=== PATIENT | male | born 1980 | race Caucasian/White ===

== ENCOUNTER 2017-08-21 00:43 | Emergency (ER) | payer OTHER ==
[2017-08-21 01:08] VITALS: RESP 18; TEMP 96.9
[2017-08-21 01:08] LABS: BASOPHILS % (AUTO) 1 % (0-3); EOSINOPHILS % (AUTO) 2 % (0-9); HEMATOCRIT 40 % (39-53); MEAN CORPUSCULAR HGB CONC 36.2 gm/dl (32.0-36.0); MEAN CORPUSCULAR VOLUME 87 fL (80-100); MONOCYTES % (AUTO) 10.6 % (0-12); NEUTROPHILS % (AUTO) 56.4 % (37-80)
[2017-08-21] MEDS: SODIUM CHLORIDE 0.9% 1000ML 1,000 ML IV SCH ×3 (01:15→03:17)
[2017-08-21 01:17] LABS: CALCIUM 8.3 mg/dl (8.5-10.1); POTASSIUM 3.7 mMol/L (3.5-5.1)
[2017-08-21 01:21] LABS: APPEARANCE,URINE Clear; BILIRUBIN,URINE NEGATIVE (NEGATIVE); COLOR,URINE Yellow; GLUCOSE, URINE (UA) NEGATIVE (NEGATIVE); KETONES,URINE TRACE (NEGATIVE); LEUKOCYTE ESTERASE ,URINE NEGATIVE (NEGATIVE); NITRATE,URINE NEGATIVE (NEGATIVE); OCCULT BLOOD,URINE 3+ (NEG-TRACE); PH,URINE 5.5; UROBILINOGEN,URINE 0.2 (0.2-1.0 EU)
[2017-08-21 01:32] LABS: RBC,URINE 50-60 (0-3AV/HPF); WBC,URINE 0-3 (0-5AV/HPF)
[2017-08-21] MEDS ORDERED: PREDNISONE 20 MG TAB PO ONE (02:13)
[2017-08-21] MEDS ORDERED: PREDNISONE 20 MG TAB ONE (02:37)
[2017-08-21] MEDS ORDERED: TAMSULOSIN HYDROCHLORIDE 0.4 MG CAP ONE (02:38)
[2017-08-21 03:34] VITALS: BP 140/97; PULSE 53; O2SAT 100
[2017-08-21] MEDS ORDERED: TAMSULOSIN HYDROCHLORIDE 0.4 MG CAP PO SCH (21:00)
== END 2017-08-21 03:19 | disposition home or self-care (01) | DRG 694 ==
LOC: ED 00:43
DX: N13.2 Hydronephrosis with renal and ureteral calculous obstruction (principal)
CPT/HCPCS: 74176; 80048; 81001; 85025; 99284